=== PATIENT | male | born 1975 | race African-American/Black ===

== ENCOUNTER 2024-01-27 08:50 | Emergency (ER) | payer OTHER, BC ==
[2024-01-27 09:19] VITALS: BP 126/84; PULSE 83
== END 2024-01-27 10:05 | disposition home or self-care (01) ==
LOC: KA.ED 08:50
DX: S43.102A Unspecified dislocation of left acromioclavicular joint, initial encounter (principal); Z88.2 Allergy status to sulfonamides; X50.0XXA Overexertion from strenuous movement or load, initial encounter; Y93.89 Activity, other specified; Y99.0 Civilian activity done for income or pay
CPT/HCPCS: 73030-LT; 99283; 99284